=== PATIENT | female | born 1980 | race Caucasian/White ===

== ENCOUNTER 2020-03-26 16:01 | Emergency (ER) | payer BC ==
--- NOTE | 2020-03-26 16:16 | ER Document Report ---
ED Medical Screen (RME) - General Stated Complaint: RAPID HEART RATE Time Seen by Provider: 03/26/20 16:08 - HPI Notes: 03/26/20 16:17 39-year-old female with history of SVT to the emergency department with complaints of rapid heartbeat that started today. She states she has had this in the past. She has had to have adenosine about 3 years ago. She states that she has a beta-randall that she can take but she does not take it because her rapid heart rate is so infrequent. She states that the last time she had an episode she was taught how to do Valsalva's and typically that breaks her out of the rapid heart rate. She is attempted to Valsalva 10 separate times with no relief. She does admit to shortness of breath and feeling lightheaded. She denies any chest pain. EKG shows heart rate of [address] Parsons reviewed the EKG and advised her of the patient. Advised charge nurse Patsy of patient as well and she will be moved directly into bed 15. I performed a brief medical screening exam on the patient determined that the patient needs further evaluation and management by main side provider. I have placed initial orders to help expedite care. - Related Data Allergies/Adverse Reactions: No Known Allergies Allergy (Verified 03/26/20 16:15)
[2020-03-26] MEDS ORDERED: ADENOSINE INJ/PF 6 MG/2 ML SDV IV ONE (16:19)
[2020-03-26] MEDS ORDERED: NORMAL SALINE 1000 ML 1,000 ML IV ONE (16:50)
--- NOTE | 2020-03-26 17:03 | RADIOLOGY REPORT (SQ) ---
EXAM DESCRIPTION: CHEST SINGLE VIEW IMAGES COMPLETED DATE/TIME: 03/26/2020 4:46 pm REASON FOR STUDY: SVT COMPARISON: None. TECHNIQUE: Single frontal radiographic view of the chest acquired. NUMBER OF VIEWS: One view. LIMITATIONS: None. FINDINGS: LUNGS AND PLEURA: No pneumothorax. No consolidation or pleural effusion. MEDIASTINUM AND HILAR STRUCTURES: No contour abnormalities. HEART AND VASCULAR STRUCTURES: Heart normal size. BONES: No acute findings. HARDWARE: None in the chest. OTHER: No other significant finding. IMPRESSION: NO ACUTE FINDINGS. TECHNICAL DOCUMENTATION: JOB ID: [id number] [place]-72 2010 [employer]- All Rights Reserved Reading location - IP/workstation name: [employer]
--- NOTE | 2020-03-26 17:12 | ER Document Report ---
ED Cardiac - General Chief Complaint: Palpitations Stated Complaint: RAPID HEART RATE Time Seen by Provider: 03/26/20 16:08 Primary Care Provider: ELLIOT ROACH MD [NO LOCAL MD] - Follow up in 3-5 days - [facility] Notes: Patient is a 39-year-old female past medical history of SVT who presents with a rapid heart rate. Patient states that symptoms began about 3 hours ago. She had a stressful phone call at work and that is when her symptoms started. She tried the Valsalva maneuver without resolution. Patient states she has had SVT several times. She normally does not have to stay in the hospital for this. She states adenosine helps her in the past. 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 Denies any increased coffee use. No energy drinks. No drug use. Patient denies any recent illnesses. She mentioned she had a prescription for a beta-randall that was given to her for anxiety but she was told that she can take it as needed and she has not been taking it. She has not seen her car diologist in about 1 year. - Related Data Allergies/Adverse Reactions: No Known Allergies Allergy (Verified 03/26/20 16:15) Past Medical History - General Information source: Patient - Social History Smoking Status: Unknown if Ever Smoked Family History: Reviewed & Not Pertinent Patient has homicidal ideation: No Review of Systems - Review of Systems Notes: CONSTITUTIONAL: No fever, fatigue or weight loss. SKIN: No rash. HENT: No congestion, ear pain, or sore throat. EYES: No recent vision problems or eye pain. ENDOCRINE: No thyroid problems. No polyuria or polydipsia. CARDIOVASCULAR: No chest pain or edema. Positive for rapid heart rate. RESPIRATORY: No cough, shortness of breath, congestion, or wheezing. GASTROINTESTINAL: No abdominal pain, nausea, vomiting, bloody stools or diarrhea. GENITOURINARY: No dysuria. MUSCULOSKELETAL: No joint pain or swelling. LYMPHATIC: No swollen glands. NEUROLOGIC: No seizures. No headache, focal weakness or sensory changes. HEMATOLOGIC: No unusual bruising or bleeding. PSYCHIATRIC: No depression or anxiety. Physical Exam - Vital signs Vitals: Temp Pulse Resp BP Pulse Ox 98.7 F 192 H 16 165/119 H 99 03/26/20 16:05 03/26/20 16:05 03/26/20 16:05 03/26/20 16:05 03/26/20 16:05 - Notes Notes: VITAL SIGNS: Tachycardic. GENERAL: Mild distress. HEAD: Normal with no signs of head trauma. EYES: EOMI, conjunctiva normal, no discharge. EARS: Hearing grossly intact. NOSE: Normal. NECK: Normal range of motion, no tenderness, supple, no lymphadenopathy, No adenopathy, no JVD. CHEST: Clear breath sounds bilaterally. No wheezes, rales, or rhonchi. CARDIAC: Tachycardia VASCULAR: No Edema. Peripheral pulses normal and equal in all extremities. ABDOMEN: Normal and soft with no tenderness GENITOURINARY: Normal, No tenderness MUSCULOSKELETAL: Good range of motion of all major joints. Extremities without clubbing, cyanosis or edema. NEUROLOGICAL: Alert and oriented x 3. No focal sensory or strength deficits. Speech normal. Follows commands appropriately. PSYCHIATRIC: Normal Affect, judgement and mood. SKIN: Normal appearance with no rashes or lesions. Course - Re-evaluation Re-evalutation: 03/26/20 17:09 She states back in August, she had 3 episodes of SVT. She has not had any episodes since then. I attempted carotid massage after listening for bruit (no bruit auscultated) without success. Patient was given 6 mg of adenosine. SVT resolved. Patient is resting comfortably. We will obtain labs. Patient was given a fluid bolus. Patient was monitored in the ER. Heart rate continues to be within normal limits. She states she feels well and would like to go home. I did call [facility] cardiology and spoke to the owner e commerce company. He states she has not been seen in the office for about 1 year and she normally sees Dr. Roach. He recommended that she follow-up in the office within the week. I gave her all the contact information. Patient is very agreeable to this. She has no complaints and states she would like to be discharged. Patient was given strict return precautions including chest pain, return of symptoms, any other concerning symptoms. 03/26/20 20:48 - Vital Signs Vital signs: Temp Pulse Resp BP Pulse Ox 99.0 F 192 H 19 116/92 H 99 03/26/20 19:01 03/26/20 16:05 03/26/20 19:01 03/26/20 19:00 03/26/20 19:01 - Laboratory Result Diagrams: 03/26/20 16:27 03/26/20 16:27 Laboratory results interpreted by me: 03/26/20 03/26/20 16:27 17:35 Glucose 112 H Calcium 10.4 H Albumin 5.2 H Urine Blood SMALL H Ur Leukocyte Esterase SMALL H - Diagnostic Test Radiology reviewed: Image reviewed, Reports reviewed - EKG Interpretation by Me Rate: Tachycardia Rhythm: SVT When compared to previous EKG there are: Previous EKG unavailable Additional EKG results interpreted by me: 03/26/20 17:10 EKG shows SVT at a rate of 175. QTc 485. No acute ST changes. Repeat EKG after adenosine shows sinus tachycardia at a rate of 108. QTc 429. No acute ST changes. Critical Care Note - Critical Care Note Total time excluding time spent on procedures (mins): 30 Comments: On my evaluation, this patient had a high probability of imminent or life- threatening deterioration due to SVT, which required my direct attention, intervention, and personal management. I have personally provided 30 minutes of critical care time. Time includes review of laboratory data, radiology results, discussion with consultants, and monitoring for potential decompensation. Interventions were performed as documented above. Discharge - Discharge Clinical Impression: SVT (supraventricular tachycardia) Condition: Stable Disposition: HOME, SELF-CARE Instructions: Paroxysmal Supraventricular Tachycardia ([facility]) Additional Instructions: Follow-up with your owner e commerce company within the week. Please return to the ER for any return of palpitations, chest pain, any concerning symptoms. Referrals: ELLIOT ROACH MD [NO LOCAL MD] - Follow up in 3-5 days
[2020-03-26 17:23] LABS: ABSOLUTE BASOPHILS # (AUTO) 0.1 10^3/uL (0.0-0.2); ABSOLUTE EOSINOPHILS # (AUTO) 0.3 10^3/uL (0.0-0.6); ABSOLUTE LYMPHOCYTES (AUTO) 3.1 10^3/uL (0.5-4.7); ABSOLUTE MONOCYTES (AUTO) 0.8 10^3/uL (0.1-1.4); ABSOLUTE NEUT (AUTO) 5.8 10^3/uL (1.7-8.2); BASOPHILS % (AUTO) 0.7 % (0-2); EOSINOPHILS % (AUTO) 3.1 % (0-6); HEMATOCRIT 43.4 % (36.0-47.0); HEMOGLOBIN 15.1 g/dL (12.0-15.5); LYMPHOCYTES % (AUTO) 31.2 % (13-45); MEAN CORPUSCULAR HEMOGLOBIN 31.2 pg (27.0-33.4); MEAN CORPUSCULAR HGB CONC 34.9 g/dL (32.0-36.0); MEAN CORPUSCULAR VOLUME 89 fl (80-97); MONOCYTES % (AUTO) 7.9 % (3-13); PLATELET COUNT 407 10^3/uL (150-450); RED BLOOD COUNT 4.86 10^6/uL (3.72-5.28); RED CELL DISTRIBUTION WIDTH 12.1 % (11.5-14.0); SEGMENTED NEUTROPHILS % (AUTO) 57.1 % (42-78); TOTAL CELLS COUNTED % (AUTO) 100 %; WHITE BLOOD COUNT 10.1 10^3/uL (4.0-10.5)
[2020-03-26 17:32] LABS: ALBUMIN 5.2 g/dL (3.5-5.0); ALKALINE PHOSPHATASE 49 U/L (38-126); ANION GAP 14 (5-19); ASPARTATE AMINO TRANSFERASE 24 U/L (14-36); BILIRUBIN,DIRECT 0.3 mg/dL (0.0-0.4); BILIRUBIN,TOTAL 0.7 mg/dL (0.2-1.3); BLOOD UREA NITROGEN 13 mg/dL (7-20); CALCIUM 10.4 mg/dL (8.4-10.2); CARBON DIOXIDE 23 mmol/L (22-30); CHLORIDE 104 mmol/L (98-107); GLUCOSE 112 mg/dL (75-110); POTASSIUM 4.1 mmol/L (3.6-5.0)
[2020-03-26 17:58] LABS: APPEARANCE,URINE SLIGHTLY-CLOUDY; BILIRUBIN,URINE NEGATIVE (NEGATIVE); COLOR,URINE STRAW; GLUCOSE, URINE NEGATIVE (NEGATIVE); KETONES,URINE NEGATIVE (NEGATIVE); LEUKOCYTE ESTERASE,URINE SMALL (NEGATIVE); NITRITE,URINE NEGATIVE (NEGATIVE); PROTEIN,URINE NEGATIVE (NEGATIVE); URINE SPECIFIC GRAVITY 1.008; UROBILINOGEN,URINE NEGATIVE mg/dL (<2.0)
[2020-03-26 19:26] VITALS: BP 116/92
--- NOTE | 2020-03-26 21:54 | EKG REPORT ---
SEVERITY:- ABNORMAL ECG - SVT REPOLARIZATION ABNORMALITY, PROB RATE RELATED : Confirmed by: Sparkle Ohara 26-Mar-2020 21:53:40
== END 2020-03-26 19:32 | disposition home or self-care (01) ==
LOC: ER 16:01
DX: I47.1 Supraventricular tachycardia (principal); R00.2 Palpitations
CPT/HCPCS: 93005; 99285; 96360; 36415; 87086; 83735; 85025; 81025; 87088; 80053; 81001; 84484; 87186; 71045; 93010; J7030; J0153